=== PATIENT | male | born 1970 | race African-American/Black ===

== ENCOUNTER 2021-08-09 00:12 | Inpatient (IN) | payer OTHER ==
[~2021-08-09] VITALS: Ht 170.2 cm; Wt 90.2 kg
[2021-08-09 01:12] LABS: Basophils # (auto) 0.2 10 ^3/uL (0-0.2); Basophils % (auto) 2.3 % (0.0-2.0); Eosinophils # (auto) 0.1 10 ^3/uL (0-0.8); Eosinophils % (auto) 1.8 % (0.0-7.0); Hematocrit 44.9 % (41.0-53.0); Hemoglobin 15.6 g/dL (13.5-17.5); Lymphocytes # (auto) 1.8 10 ^3/uL (0.4-5.4); Lymphocytes % (auto) 22.8 % (10.0-50.0); Mean Corpuscular Hgb Conc. 34.7 g/dL (32.0-36.0); Mean Corpuscular Volume 89.3 fL (80.0-100.0); Monocytes # (auto) 0.3 10 ^3/uL (0-1.3); Monocytes % (auto) 4.4 % (0.0-12.0); Neutrophils # (auto) 5.4 10 ^3/uL (1.6-8.6); Neutrophils % (auto) 68.7 % (37.0-80.0); Nucleated Red Blood Cells % 0.1 %; Red Blood Cells 5.03 10^6/uL (4.5-5.90); Red Cell Distribution Width 12.3 % (11.8-14.3); White Blood Cell 7.8 10^3/uL (4.4-10.8)
[2021-08-09 01:26] LABS: Albumin 4.1 g/dL (3.4-5.0); Calcium 9.2 mg/dL (8.5-10.1); Potassium 3.6 mmol/L (3.5-5.1)
[2021-08-09 01:31] LABS: INR 0.97 (0.9-1.15)
[2021-08-09 01:32] LABS: BUN/Creatinine Ratio 9.8; Bilirubin, Total 0.4 mg/dL (0.2-1.0); Total Protein 8.3 g/dL (6.4-8.2)
[2021-08-09] MEDS ORDERED: hydrALAZINE HCL 20 MG/ML VL IV ONE (01:45)
[2021-08-09] MEDS ORDERED: ASPirin 325 MG TAB PO ONE (02:00)
[2021-08-09] MEDS ORDERED: ENOXAPARIN SOD 100 MG/1 ML SYRINGE SC ONE (02:00)
[2021-08-09] MEDS ORDERED: DEXTROSE (50%) 50ML SYRG IV PRN (03:00)
[2021-08-09] MEDS ORDERED: MORPHINE SULFATE 4 MG/ML SYR/VIAL IV PRN (03:00)
[2021-08-09] MEDS ORDERED: ACETAMINOPHEN 325 MG TAB PO PRN (03:00)
[2021-08-09] MEDS ORDERED: HYDROcodone-ACET 5/325MG TAB PO PRN (03:00)
[2021-08-09] MEDS ORDERED: hydrALAZINE HCL 20 MG/ML VL IV PRN (03:00)
[2021-08-09] MEDS ORDERED: ONDANSETRON HCL 4 MG/2 ML VIAL IV PRN (03:00)
[2021-08-09] MEDS ORDERED: DOCUSATE SOD 100 MG CAP PO PRN (03:00)
[2021-08-09] MEDS ORDERED: NITROGLYCERIN 0.4 MG SL TAB SL ONE (03:15)
[2021-08-09] MEDS ORDERED: MORPHINE SULFATE INJECTION 2 MG/ML SYRG IV PRN (03:30)
[2021-08-09] MEDS ORDERED: NITROGLYCERIN 0.4 MG SL TAB SL PRN (03:30)
[2021-08-09] MEDS: SODIUM CHLORIDE 0.9% 1,000 ML IV SCH ×2 (03:45→19:39)
[2021-08-09 04:25] LABS: Basophils # (auto) 0.1 10 ^3/uL (0-0.2); Basophils % (auto) 0.7 % (0.0-2.0); Eosinophils # (auto) 0.1 10 ^3/uL (0-0.8); Eosinophils % (auto) 1.1 % (0.0-7.0); Hematocrit 43.6 % (41.0-53.0); Hemoglobin 15.2 g/dL (13.5-17.5); Lymphocytes # (auto) 2.6 10 ^3/uL (0.4-5.4); Lymphocytes % (auto) 30.4 % (10.0-50.0); Mean Corpuscular Hemoglobin 30.9 pg (28.0-32.0); Mean Corpuscular Hgb Conc. 34.8 g/dL (32.0-36.0); Mean Corpuscular Volume 88.8 fL (80.0-100.0); Monocytes # (auto) 0.5 10 ^3/uL (0-1.3); Monocytes % (auto) 5.7 % (0.0-12.0); Neutrophils # (auto) 5.2 10 ^3/uL (1.6-8.6); Neutrophils % (auto) 62.1 % (37.0-80.0); Red Blood Cells 4.91 10^6/uL (4.5-5.90); Red Cell Distribution Width 12.2 % (11.8-14.3); White Blood Cell 8.4 10^3/uL (4.4-10.8)
[2021-08-09 04:33] LABS: Potassium 3.7 mmol/L (3.5-5.1)
[2021-08-09 04:44] LABS: Bilirubin, Total 0.4 mg/dL (0.2-1.0); Calcium 9.5 mg/dL (8.5-10.1); Total Protein 7.8 g/dL (6.4-8.2)
[2021-08-09] MEDS ORDERED: HEPARIN DRIP/D5W 100UNITS/ML 250 ML IV SCH ×2 (05:15→11:45)
[2021-08-09 05:28] LABS: Amphetamine Screen, Urine NEGATIVE (NEGATIVE); Barbiturate Scree,Urine NEGATIVE (NEGATIVE); Benzodiazephine Screen, Urine NEGATIVE (NEGATIVE); Cannabinoid Screen, Urine POSITIVE (NEGATIVE); Cocaine Screen, Urine NEGATIVE (NEGATIVE); Opiate Scree,Urine NEGATIVE (NEGATIVE); Phencyclidine Screen, Urine NEGATIVE (NEGATIVE)
[2021-08-09 05:40] LABS: Urine Bacteria NONE SEEN /hpf (None Seen); Urine Blood Negative /uL (Negative); Urine Specific Gravity 1.013 (1.001-1.035); Urine WBC 1 /hpf (0 - 3)
[2021-08-09 06:35] LABS: INR 0.99 (0.9-1.15); Partial Thromboplastin Time 34.2 sec (23.6-33.0)
[2021-08-09] MEDS: ACCU-CHEK COMFORT CURVE STRIP VI SCH ×4 (07:00→21:50)
[2021-08-09] MEDS: InsuLIN REG 1unit/0.01ml Soln (100units/ml) SC SCH ×3 (07:00→16:40)
[2021-08-09 08:56] VITALS: BP 192/123
[2021-08-09] MEDS: amLODIPine BESYLATE 5 MG TAB PO SCH (09:38)
[2021-08-09] MEDS: FAMOTIDINE (10MG/ML) 2ML VL IV SCH ×2 (09:38→21:50)
[2021-08-09] MEDS ORDERED: ASPirin 81 mg TAB PO SCH (10:00)
[2021-08-09 10:38] VITALS: BP 163/92
[2021-08-09] MEDS ORDERED: LISINOPRIL 20 MG TAB PO ONE (10:45)
[2021-08-09] MEDS ORDERED: cloNIDine HCL 0.1 MG TAB PO PRN (11:00)
[2021-08-09] MEDS ORDERED: HEPARIN SODIUM (PORCINE) 5000 UNITS/ML 1ML VIAL IV ONE (11:30)
[2021-08-09 11:32] LABS: Cholesterol 255 mg/dL (< 200)
[2021-08-09 11:35] LABS: HDL Cholesterol 38 mg/dL (40-59); LDL Cholesterol 185 mg/dL (< 100); Triglycerides 115 mg/dL (< 150)
[2021-08-09 11:43] VITALS: BP 158/82
[2021-08-09] MEDS: METOPROLOL TARTRATE 25 MG TAB PO SCH ×3 (11:45→22:27)
[2021-08-09] MEDS ORDERED: IODIXANOL 320MG/ML 100ML BTL IV ONE (13:51)
[2021-08-09] MEDS ORDERED: LIDOCAINE 2%HCL (LOCAL ANESTH.) INJ 20ML MDV ONE (13:51)
[2021-08-09] MEDS ORDERED: HEPARIN SODIUM (PORCINE) 5000 UNITS/ML 1ML VIAL SC SCH (14:00)
[2021-08-09] MEDS ORDERED: fentaNYL CITRATE 100 MCG/2 ML VL ONE (14:01)
[2021-08-09] MEDS ORDERED: VERAPAMIL 2.5MG/ML INJ 2ML VIAL IV ONE (14:01)
[2021-08-09] MEDS ORDERED: ANGIOMAX 250 MG VIAL IV ONE (14:01)
[2021-08-09] MEDS ORDERED: MIDAZOLAM HCL 2MG/2ML 2ml VIAL (1mg/ml) ONE (14:01)
[2021-08-09] MEDS ORDERED: SODIUM CHL 0.9% 50 ML ONE (14:01)
[2021-08-09] MEDS ORDERED: IOHEXOL 350 MG/ML 100ML IJ ONE (14:14)
[2021-08-09] MEDS ORDERED: CLOPIDOGREL 300 MG TAB ONE (14:25)
[2021-08-09] MEDS ORDERED: ASPirin 325 MG TAB ONE (14:26)
[2021-08-09] MEDS ORDERED: SOD CHL 0.45% 1,000 ML IV ONE (15:30)
[2021-08-09 15:56] VITALS: BP 129/78
[2021-08-09 17:00] VITALS: BP 146/88
[2021-08-09 22:00] VITALS: BP 144/78
[2021-08-09] MEDS ORDERED: InsuLIN REG 1unit/0.01ml Soln (100units/ml) SC SCH (22:00)
[2021-08-09] MEDS ORDERED: ATORVASTATIN 20 MG TAB PO SCH (22:00)
[2021-08-10 05:00] VITALS: BP 133/84
[2021-08-10 05:49] LABS: Basophils # (auto) 0 10 ^3/uL (0-0.2); Basophils % (auto) 0.4 % (0.0-2.0); Eosinophils # (auto) 0.1 10 ^3/uL (0-0.8); Eosinophils % (auto) 1.6 % (0.0-7.0); Hematocrit 40.1 % (41.0-53.0); Lymphocytes # (auto) 2.5 10 ^3/uL (0.4-5.4); Lymphocytes % (auto) 35.5 % (10.0-50.0); Mean Corpuscular Hemoglobin 31.2 pg (28.0-32.0); Monocytes # (auto) 0.6 10 ^3/uL (0-1.3); Monocytes % (auto) 9.1 % (0.0-12.0); Neutrophils # (auto) 3.8 10 ^3/uL (1.6-8.6); Neutrophils % (auto) 53.4 % (37.0-80.0); Red Cell Distribution Width 12.1 % (11.8-14.3); White Blood Cell 7.1 10^3/uL (4.4-10.8)
[2021-08-10] MEDS: ACCU-CHEK COMFORT CURVE STRIP VI SCH ×2 (06:01→12:29)
[2021-08-10 06:04] LABS: Albumin 3.5 g/dL (3.4-5.0); Calcium 8.6 mg/dL (8.5-10.1); Potassium 4.2 mmol/L (3.5-5.1)
[2021-08-10 06:09] LABS: BUN/Creatinine Ratio 11.8; Bilirubin, Total 0.5 mg/dL (0.2-1.0); Total Protein 6.8 g/dL (6.4-8.2)
[2021-08-10] MEDS: InsuLIN REG 1unit/0.01ml Soln (100units/ml) SC SCH ×2 (06:09→12:29)
[2021-08-10 08:00] VITALS: BP 147/89
[2021-08-10] MEDS: FAMOTIDINE (10MG/ML) 2ML VL IV SCH (09:23)
[2021-08-10] MEDS: METOPROLOL TARTRATE 25 MG TAB PO SCH (09:24)
[2021-08-10] MEDS: amLODIPine BESYLATE 5 MG TAB PO SCH (09:25)
[2021-08-10] MEDS ORDERED: ASPirin 81 mg TAB PO SCH (10:00)
[2021-08-10] MEDS ORDERED: LISINOPRIL 20 MG TAB PO SCH (10:00)
[2021-08-10] MEDS ORDERED: CLOPIDOGREL BISULFATE 75 MG TAB PO SCH (10:00)
[2021-08-10 11:50] VITALS: BP 179/119
[2021-08-10 13:00] VITALS: BP 167/106
== END 2021-08-10 15:30 | disposition home or self-care (01) | DRG 247 ==
LOC: ER 00:12 → TELE 03:16 → TELE-WESTW 07:53
PROVIDERS: ADMIT Nurse Practitioner Family; ATTEND Nurse Practitioner Family
PROC: 03HB33Z Insertion of Infusion Device into Right Radial Artery, Percutaneous Approach (ICD-10-PCS; principal; 2021-08-09)
PROC: 027034Z Dilation of Coronary Artery, One Artery with Drug-eluting Intraluminal Device, Percutaneous Approach (ICD-10-PCS; 2021-08-09)
PROC: 4A023N7 Measurement of Cardiac Sampling and Pressure, Left Heart, Percutaneous Approach (ICD-10-PCS; 2021-08-09)
PROC: B211YZZ Fluoroscopy of Multiple Coronary Arteries using Other Contrast (ICD-10-PCS; 2021-08-09)
PROC: B215YZZ Fluoroscopy of Left Heart using Other Contrast (ICD-10-PCS; 2021-08-09)
DX: I21.4 Non-ST elevation (NSTEMI) myocardial infarction (principal); I16.1 Hypertensive emergency; E11.65 Type 2 diabetes mellitus with hyperglycemia; E78.5 Hyperlipidemia, unspecified; F12.10 Cannabis abuse, uncomplicated; I10 Essential (primary) hypertension; R42 Dizziness and giddiness; E78.00 Pure hypercholesterolemia, unspecified; Z20.822 Contact with and (suspected) exposure to COVID-19; Z79.84 Long term (current) use of oral hypoglycemic drugs; Z91.19 Patient's noncompliance with other medical treatment and regimen; Z71.51 Drug abuse counseling and surveillance of drug abuser
CPT/HCPCS: 36415; 71045; 80053; 80061; 80307; 81001; 82962; 83036; 83735; 83880; 84484; 85025; 85610; 85730; 87426; 93005; 93306; 96372; 96374; 99152; 99153; C1874; G0378; J1815; J2250; J3490; Q9967

== ENCOUNTER 2025-02-03 05:14 | Emergency (ER) | payer OTHER ==
[~2025-02-03] VITALS: Ht 172.7 cm; Wt 79.5 kg
[2025-02-03 05:52] LABS: Basophils # (auto) 0.1 10 ^3/uL (0-0.2); Basophils % (auto) 0.7 % (0.0-2.0); Eosinophils # (auto) 0.2 10 ^3/uL (0-0.8); Eosinophils % (auto) 2.7 % (0.0-7.0); Hematocrit 43.2 % (41.0-53.0); Hemoglobin 15.1 g/dL (13.5-17.5); Lymphocytes # (auto) 2.5 10 ^3/uL (0.4-5.4); Lymphocytes % (auto) 33.1 % (10.0-50.0); Mean Corpuscular Hemoglobin 30.5 pg (28.0-32.0); Mean Corpuscular Hgb Conc. 34.9 g/dL (32.0-36.0); Mean Corpuscular Volume 87.5 fL (80.0-100.0); Monocytes # (auto) 0.6 10 ^3/uL (0-1.3); Monocytes % (auto) 7.4 % (0.0-12.0); Neutrophils # (auto) 4.2 10 ^3/uL (1.6-8.6); Neutrophils % (auto) 56.1 % (37.0-80.0); Nucleated Red Blood Cells % 0.1 %; Platelet Count (auto) 239 10^3/uL (140-450); Red Blood Cells 4.94 10^6/uL (4.5-5.90); Red Cell Distribution Width 12.6 % (11.8-14.3); White Blood Cell 7.5 10^3/uL (4.4-10.8)
[2025-02-03 05:57] LABS: Chloride 100 mmol/L (98-107); Potassium 3.9 mmol/L (3.5-5.1)
[2025-02-03 05:58] LABS: Anion Gap 9 (5-15); Calcium 9.9 mg/dL (8.7-10.4); Carbon Dioxide 27 mmol/L (20-31); Sodium 136 mmol/L (136-145)
--- NOTE | 2025-02-03 06:00 | PRN ---
Misceleneous Note Note Note RAPID MEDICAL ASSESSMENT NOTE: 54-year-old male with a history of HI status post angioplasty presents with chest pain ongoing for 7 days. Physical exam: General: Awake, alert and oriented. No acute distress. Skin: Skin in warm, dry and intact without rashes or lesions. HEENT: The head is normocephalic and atraumatic. Conjunctivae are clear without exudates or hemorrhage. Sclera is non-icteric. Neck: Normal range of motion. No JVD. Cardiac: Regular rate Respiratory: No signs of respiratory distress. No Stridor. Neurological: The patient is awake, alert and oriented to person, place, and time with normal speech. Speech is clear. There is no facial asymmetry. Psychiatric: Appropriate mood and affect. Good judgement and insight. Plan: EKG, labs, imaging, aspirin, morphine. Sign out to oncoming provider pending full evaluation and re-assessment. ASHWINI HOLLAND MD Feb 03, 2025 06:00
[2025-02-03 06:03] LABS: BUN/Creatinine Ratio 11.8 (10.0-20.0); Blood Urea Nitrogen 14 mg/dL (9-23)
--- NOTE | 2025-02-03 06:05 | DVH ---
CHEST RADIOGRAPH Indication: cp Technique: Single frontal view of the chest was obtained COMPARISON: CHEST XRAY 1 VIEW on DOS: 08/09/21 FINDINGS: Lines and Tubes: None Lungs: Clear Pleura: No effusion. No pneumothorax. Cardiomediastinal contours: Unremarkable Bones: Unremarkable IMPRESSION: 1. No acute disease.
--- NOTE | 2025-02-03 06:06 | ECG ---
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
[2025-02-03 06:07] LABS: Glucose 363 mg/dL (74-106)
--- NOTE | 2025-02-03 06:27 | ED.PDOC ---
HPI Comments This is a 54 year old male presenting to the ED with chief complaint of chest pain. Patient reports that he has been experiencing sudden, constant, sharp left sided chest pain with associated radiation to his left shoulder and back for a week. Patient relays that he has history of a cardiac stent in place. Patient states movement and palpation do not worsen or relieve his pain. Patient denies any N/V, SOB, dizziness, headache, cough, fever, or chills. Chief Complaint: Chest Pain Time Seen by MD: 06:23 Reviewed Notes: Nurses Notes, Medications, Allergies Allergies: Coded Allergies: NO KNOWN ALLERGIES (Unverified , 08/09/21) Home Meds No Active Prescriptions or Reported Meds Information Source: Patient Mode of Arrival: Ambulatory Severity: Moderate Timing: Weeks Duration: Since onset Prehospital treatment: None Location: Chest (L) Radiation: Back, Shoulder (L) Quality: Sharp Onset: At Rest Cardiac Risk Factors: HTN, Diabetes History of: Similar pain in past Past Medical History PAST MEDICAL HISTORY: DM, HTN Surgical History: PTCA Family History Family History: Reviewed,noncontributory to illness Social History Smoker: Non-Smoker Alcohol: Denies ETOH Use Drugs: Denies Drug Use Lives In: Home Constitutional: denies: chills, diaphoresis, fatigue, fever, malaise, sweats, weakness, others EENTM: denies: blurred vision, double vision, ear bleeding, ear discharge, ear drainage, ear pain, ear ringing, eye pain, eye redness, hearing loss, mouth pain, mouth swelling, nasal discharge, nose bleeding, nose congestion, nose pain, photophobia, tearing, throat pain, throat swelling, voice changes, others Respiratory: denies: cough, hemoptysis, orthopnea, SOB at rest, shortness of breath, SOB with excertion, stridor, wheezing, others Cardiovascular: reports: chest pain; denies: dizzy spells, diaphoresis, Dyspnea on exertion, edema, irregular heart beat, left arm pain, lightheadedness, palpitations, PND, syncope, others Gastrointestinal: denies: abdomen distended, abdominal pain, blood streaked bowels, constipated, diarrhea, dysphagia, difficulty swallowing, hematemesis, melena, nausea, poor appetite, poor fluid intake, rectal bleeding, rectal pain, vomiting, others Genitourinary: denies: burning, dysuria, flank pain, frequency, hematuria, incontinence, penile discharge, penile sore, pain, testicle pain, testicle swelling, urgency, others Neurological: denies: dizziness, fainting, headache, left sided numbness, left sided weakness, numbness, paresthesia, pre-existing deficit, right sided numbness, right sided weakness, seizure, speech problems, tingling, tremors, weakness, others Musculoskeletal: denies: back pain, gout, joint pain, joint swelling, muscle pain, muscle stiffness, neck pain, others Integumetry: denies: bruises, change in color, change in hair/nails, dryness, laceration, lesions, lumps, rash, wounds, others Allergic/Immunocompromised: denies: Difficulty Healing, Frequent Infections, Hives, Itching, others Hematologic/Lymphatic: denies: anemia, blood clots, easy bleeding, easy bruising, swollen glands, others Endocrine: denies: excessive hunger, excessive sweating, excessive thirst, excessive urination, flushing, intolerance to cold, intolerance to heat, unexplained weight gain, unexplained weight loss, others Psychiatric: denies: anxiety, bipolar disorder, depression, hopeless, panic disorder, schizophrenia, sleepless, suicidal, others All Other Systems: Reviewed and Negative Physical Exam General Appearance: No Apparent Distress, Normal HEENT: Normal ENT Inspection, Pharynx Normal, TMs Normal Neck: Full Range of Motion, Non-Tender, Normal, Normal Inspection Respiratory: Chest Non-Tender, Lungs Clear, No Accessory Muscle Use, No Respiratory Distress, Normal Breath Sounds Cardiovascular: No Edema, No JVD, No Murmur, No Gallop, Normal Peripheral Pulses, Regular Rate/Rhythm Breast Exam: Deferred Gastrointestinal: No Organomegaly, Non Tender, No Pulsatile Mass, Normal Bowel Sounds, Soft Genitalia: Deferred Pelvic: Deferred Rectal: Deferred Extremities: No calf tenderness, Normal capillary refill, Normal inspection, Normal range of motion, Non-tender, No pedal edema Musculoskeletal : Apperance: Normal Neurologic: Alert, 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 Was a procedure done?: No CP Differential Dx Differential Diagnosis: N/A Differential Diagnosis: N/A Differential Diagnosis: Angina, Aortic dissection, Chest Wall Pain, Costochondritis, Esophageal reflux/spasm, Gastritis, Myocardial Infarction, Pericarditis, Pneumonia, Pneumothorax, Pulmonary Embolus X-Ray, Labs, Meds, VS Vital Signs Date Time Temp Pulse Resp B/P (MAP) Pulse Ox O2 Delivery O2 Flow Rate FiO2 02/03/25 10:07 98.0 69 16 157/102 (120) 99 98.0 02/03/25 08:21 68 02/03/25 08:09 159/97 02/03/25 07:55 98.2 59 18 187/100 (129) 96 98.2 02/03/25 07:55 59 02/03/25 07:18 62 16 159/97 02/03/25 07:09 203/126 02/03/25 06:51 98.6 69 16 203/126 (151) 98 98.6 02/03/25 06:48 69 16 203/126 02/03/25 06:35 64 02/03/25 06:26 64 02/03/25 05:49 98.1 16 16 168/103 (124) 100 98.1 02/03/25 05:24 84 Lab Test 02/03/25 08:20 02/03/25 07:04 02/03/25 06:30 02/03/25 05:23 Range/Units Troponin I High Sensitivity 56 *H 52 50 </=54 ng/L POC Glucose 290 H 70-106 mg/dl White Blood Count 7.5 4.4-10.8 10^3/uL Red Blood Count 4.94 4.5-5.90 10^6/uL Hemoglobin 15.1 13.5-17.5 g/dL Hematocrit 43.2 41.0-53.0 % Mean Corpuscular Volume 87.5 80.0-100.0 fL Mean Corpuscular Hemoglobin 30.5 28.0-32.0 pg Mean Corpuscular Hemoglobin Concent 34.9 32.0-36.0 g/dL Red Cell Distribution Width 12.6 11.8-14.3 % Platelet Count 239 140-450 10^3/uL Mean Platelet Volume 8.2 6.9-10.8 fL Neutrophils (%) (Auto) 56.1 37.0-80.0 % Lymphocytes (%) (Auto) 33.1 10.0-50.0 % Monocytes (%) (Auto) 7.4 0.0-12.0 % Eosinophils (%) (Auto) 2.7 0.0-7.0 % Basophils (%) (Auto) 0.7 0.0-2.0 % Neutrophils # (Auto) 4.2 1.6-8.6 10 ^3/uL Lymphocytes # (Auto) 2.5 0.4-5.4 10 ^3/uL Monocytes # (Auto) 0.6 0-1.3 10 ^3/uL Eosinophils # (Auto) 0.2 0-0.8 10 ^3/uL Basophils # (Auto) 0.1 0-0.2 10 ^3/uL Nucleated Red Blood Cells 0.1 % Sodium Level 136 136-145 mmol/L Potassium Level 3.9 3.5-5.1 mmol/L Chloride Level 100 98-107 mmol/L Carbon Dioxide Level 27 20-31 mmol/L Anion Gap 9 5-15 Blood Urea Nitrogen 14 9-23 mg/dL Creatinine 1.19 0.700-1.30 mg/dL Glomerular Filtration Rate Calc 73 >90 mL/min BUN/Creatinine Ratio 11.8 10.0-20.0 Serum Glucose 363 H 74-106 mg/dL Calcium Level 9.9 8.7-10.4 mg/dL B-Type Natriuretic Peptide 31.75 0-100 pg/mL Current Medications Medications (Trade) Dose Ordered Sig/Katherine Route Start Time Stop Time Status Last Admin Morphine Sulfate 2 mg ONCE ONCE IV 02/03/25 05:30 02/03/25 05:31 DC 02/03/25 06:48 Ketorolac Tromethamine (Toradol Injection) 15 mg ONCE ONCE IM 02/03/25 06:30 02/03/25 06:31 DC 02/03/25 06:47 Clonidine HCl (Catapres Tablet) 0.1 mg ONCE ONCE PO 02/03/25 07:00 02/03/25 07:01 DC 02/03/25 07:09 Insulin Human Regular (InsuLIN R) 4 units ONCE ONCE IV 02/03/25 07:00 02/03/25 07:01 DC 02/03/25 07:09 Chest XR: FINDINGS: Lines and Tubes: None Lungs: Clear Pleura: No effusion. No pneumothorax. Cardiomediastinal contours: Unremarkable Bones: Unremarkable IMPRESSION: 1. No acute disease. Images Reviewed?: Images reviewed and evaluated by me Time of 1ST Reevaluation: 07:23 Reevaluation 1ST: Unchanged Time of 2ND Reevaluation: 11:44 Reevaluation 2ND: Resolved Patient Education/Counseling: Diagnosis, Treatment, Prognosis, Need For Follow Up Family Education/Counseling: No Family Present Comments pt has atypical chest pain, however, the pain was significant despite of normal test results, so i ordered a cta of chest, which is negative., after the CTA, pt is pain free and would like to go home Additional Information Previous visits reviewed: 08/09/21 for chest pain The following tests were ordered, and results were reviewed by me: CBC, BMP, Troponin, EKG, Chest XR, BNP Additional Information was gathered from interviewing the following independent historians: None I reviewed and agreed with the following test results read by other providers: None I discussed treatment and results with medical personnel and: patient Comprehensive systems review obtained and negative except for what is stated in the HPI. SEPSIS Sepsis Screen Date sepsis recognized/suspect: Feb 03, 2025 Time Sepsis recognized/suspect: 515 Recent Procedure: No On Antibiotic Therapy: No Respiratory Rate >20: No Heart Rate >90: No Temp<36 C (96.8 F) or >38.3 C: No SBP <90 or MAP <65 mmHG: No New Acute Mental Status Change: No Is the patient on CPAP, BIPAP,: No Physician Orders Electrocardigram (02/03/25 08:18) Vital Signs Q1HR (02/03/25 05:23) Chest Xray 1 View (02/03/25 05:23) Saline Lock (02/03/25 05:23) Cell Tuber Hand (02/03/25 ) Accucheck (02/03/25 08:00) Accucheck (02/03/25 10:00) Accucheck (02/03/25 12:00) Ct Angio Chest Contrast (02/03/25 09:07) Vital Signs Date Time Temp Pulse Resp B/P (MAP) Pulse Ox O2 Delivery O2 Flow Rate FiO2 02/03/25 10:07 98.0 69 16 157/102 (120) 99 98.0 6/21/25 08:21 68 02/03/25 08:09 159/97 02/03/25 07:55 98.2 59 18 187/100 (129) 96 98.2 02/03/25 07:55 59 02/03/25 07:18 62 16 159/97 02/03/25 07:09 203/126 02/03/25 06:51 98.6 69 16 203/126 (151) 98 98.6 02/03/25 06:48 69 16 203/126 02/03/25 06:35 64 02/03/25 06:26 64 02/03/25 05:49 98.1 16 16 168/103 (124) 100 98.1 02/03/25 05:24 84 Laboratory Tests Test 02/03/25 05:23 White Blood Count 7.5 10^3/uL (4.4-10.8) Medications Medications Dose Ordered Sig/Katherine Route Start Time Stop Time Status Last Admin Dose Admin Clonidine HCl 0.1 mg ONCE ONCE PO 02/03/25 07:00 02/03/25 07:01 DC 02/03/25 07:09 Insulin Human Regular 4 units ONCE ONCE IV 02/03/25 07:00 02/03/25 07:01 DC 02/03/25 07:09 Ketorolac Tromethamine 15 mg ONCE ONCE IM 02/03/25 06:30 02/03/25 06:31 DC 02/03/25 06:47 Morphine Sulfate 2 mg ONCE ONCE IV 02/03/25 05:30 02/03/25 05:31 DC 02/03/25 06:48 Departure 1 Departure Time of Disposition: 11:45 Impression: Primary Impression: Chest pain Qualified Codes: R07.9 - Chest pain, unspecified Disposition: 01 HOME / SELF CARE / HOMELESS Condition: Good e-Prescriptions Cyclobenzaprine Hcl (Cyclobenzaprine Hcl) 10 Mg Tab 10 MG PO Q8HP PRN for 2 Days, #6 TAB Prov: ANALI SKAGGS MD 02/03/25 Ibuprofen Micronized (MOTRIN TABLET) 600 Mg Tb 600 MG PO TID PRN, #40 TAB *Black box warning-NSAIDS can increase risk of MS & hypertension, GI irritation, ulceration, bleed, perferation. Do not use post cardiac surgery. Use short duration/lowest effective dose. Prov: ANALI SKAGGS MD 02/03/25 Discharged With: Self Critical Care Note Critical Care Time?: No Stability Stability form required: No Heart Score Heart Score: Heart Score Response (Comments) Value History Slightly Suspicious 0 EKG Normal 0 Age 45-64 1 Risk Factors >3 or Hx ASHD 2 Troponin Normal limit 0 Total 3 I personally scribed for ANALI SKAGGS MD ([email or web address]) on 02/03/25 at 06:27. Electronically submitted by Julian Vallejo ([email or web address]). I personally scribed for ANALI SKAGGS MD ([email or web address]) on 02/03/25 at 06:32. Electronically submitted by Julian Vallejo ([email or web address]). I personally scribed for ANALI SKAGGS MD ([email or web address]) on 02/03/25 at 06:35. Electronically submitted by Julian Vallejo ([email or web address]). ANALI SKAGGS MD Feb 03, 2025 06:27
--- NOTE | 2025-02-03 06:36 | ECG ---
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
[2025-02-03] MEDS: KETOROLAC TROMETH 30 MG/ML 1ML VIAL IM ONE (06:47)
[2025-02-03] MEDS: MORPHINE SULFATE INJ 2 MG/ml SYRG IV ONE (06:48)
[2025-02-03] MEDS: ASPirin 81 mg TAB PO ONE (06:49)
[2025-02-03] MEDS: cloNIDine HCL 0.1 MG TAB PO ONE (07:09)
[2025-02-03] MEDS: InsuLIN REG 1unit/0.01ml Soln (100units/ml) IV ONE (07:09)
[2025-02-03] MEDS: IOHEXOL 350 MG/ML 100ML IJ ONE ×2 (09:28→10:35)
--- NOTE | 2025-02-03 11:10 | DVH ---
CT CT ANGIO CHEST CONTRAST INDICATION: r/o pe EXAM DATE: 02/03/2025 10:35 AM COMPARISON: None RADIATION DOSE: CTDIvol: 14 mGy, DLP: 451 mGy*cm PROCEDURE: Helical CT angiographic images were obtained of the chest with intravenous contrast. Sagi ttal and coronal reconstructions as well as MIPS are provided. Maximum intensity projections performe d (MIPs) were performed for CTA. ADDITIONAL IMAGES / REFORMATS: None All CT scans at this medical facility are performed using dose modulation techniques as appropriate t o a performed exam including the following: Automated exposure control was utilized; adjustment of th e MA and/or KV according to patient size; and use of iterative reconstruction technique. FINDINGS: Bones: Normal. Visualized Abdomen: Normal. Chest Wall: Normal. Soft tissues: Normal. Mediastinum: Normal. Heart: Normal. Vessels: No filling defects in the visualized pulmonary arteries including the segmental and subsegme ntal pulmonary arteries. Lymph Nodes: Normal. Pleura: Normal. Airways: Normal. Lung: Normal. Other: None IMPRESSION: No pulmonary embolism in the visualized pulmonary arteries including the segmental and subsegmental p ulmonary arteries.
[2025-02-03] MEDS ORDERED: IBU600T PO (11:46)
[2025-02-03] MEDS ORDERED: CYCL-839 PO (11:46)
[2025-02-03 11:58] VITALS: BP 173/96; PULSE 75; RESP 16; TEMP 98.3; O2SAT 95
--- NOTE | 2025-02-05 10:23 | ECG ---
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
== END 2025-02-03 11:58 | disposition home or self-care (01) ==
LOC: ER 05:17
DX: R07.89 Other chest pain (principal); E11.9 Type 2 diabetes mellitus without complications; I10 Essential (primary) hypertension; Z95.5 Presence of coronary angioplasty implant and graft
CPT/HCPCS: 36415; 71045; 71275; 80048; 82947; 83880; 84484; 85025; 93005; 96372; 96374; 96375; 99285; J1815; J1885; J2270; Q9967; 82962